=== PATIENT | male | born 1990 | race Caucasian/White ===

== ENCOUNTER 2016-08-27 15:55 | Emergency (ER) | payer OTHER, BC ==
[2016-08-27 16:02] VITALS: BP 140/97
[2016-08-27] MEDS ORDERED: DIPHTH,PERTUSS(ACELL),TET VAC 0.5 ML VIAL IM ONE ×2 (16:03→16:21)
--- NOTE | 2016-08-27 16:30 | ERNOTE ---
Medical Problem HPI - Narrative Date of Service: 08/27/16 - General Chief Complaint: Laceration Time Seen by Provider: 08/27/16 16:15 Source: patient Exam Limitations: no limitations - Immun/Allergies/Home Medications Immunizations: IMMUNIZATION HX Immunizations Up to Date Yes Allergies/Adverse Reactions: Allergies No Known Allergies Allergy (Unverified 08/27/16 16:02) Home Medications: HOME MEDICATIONS NK [No Home Medication] 08/27/16 [Last Taken Unknown] - History of Present History Narrative: Pt. comes in with c/o R thumb laceration that he obtained when taking apart a dashboard at work just prior to arrival. Pt. denies any numbness, tingling, SOB , or CP but cannot remember when he had his last tetanus vaccine. Review of Systems - Review of Systems Constitutional: Present: no symptoms reported. Absent: recent illness, fever, chills, weakness, fatigue, malaise EYE: Present: no symptoms reported ENT: Present: no symptoms reported Respiratory: Present: no symptoms reported. Absent: shortness of breath, cough , wheezing Cardiology: Present: no symptoms reported. Absent: chest pain, palpitations, edema Genitourinary: Present: no symptoms reported Musculoskeletal: Present: joint pain - R distal thumb Skin: Present: other - Laceration R lateral thumb 0.4 x 2 parallel to thumb one along nail cutical and one 0.3cm lateral to the first Neurological: Present: no symptoms reported. Absent: numbness, tingling All Other Systems: All systems neg except as marked - Patient's Past Medical History Patient History - Medical: No pertinent hx Patient History - Cardiac/Respiratory: No pertinent hx Patient History - Cancer: No Hx of Cancer Patient History - Surgical Procedures: No surgical history - Social History Smoking Status: Current every day smoker Have you smoked in the past 12 months: Yes - Immunizations Immunizations Up to Date: Yes Physical Exam - Physical Exam General Appearance: Present: wd/wn, alert, no apparent distress Eye Exam: Normal inspection: bilateral, PERRL: bilateral, EOMI: bilateral Neck: Present: normal inspection, nontender. Absent: lymphadenopathy (R), lymphadenopathy (L) Respiratory: Present: no respiratory distress, normal breath sounds, no accessory muscle use, chest nontender, lungs clear Cardiovascular/Chest: Present: regular rate, rhythm, no murmur, normal peripheral pulses Extremity Exam: Present: normal range of motion, no edema, other - Laceration R lateral thumb laceration 0.4 x 2 parallel to thumb one along nail cutical and one 0.3cm lateral to the first Neurological Exam: Present: alert, oriented, normal mood/affect, no motor/ sensory deficits Skin Exam: Present: normal color, warm/dry. Absent: pallor, skin rash ED Progress - Date and Time Seen: Date and Time: 08/27/16 16:34 As wound is superficial and small and there are two wounds will do a partial closure to aid in wound healing but pt. is aware that wound will close by secondary intention due to the wound being adjacent to nail and is in agreement with plan. - Vital Signs Patient's Vital Signs:: I have reviewed the patient's vital signs. Vital Signs: Vital Signs 08/27/16 15:59 Temperature 36.7 C Pulse Rate 88 Respiratory 14 Rate Blood Pressure 140/97 O2 Sat by Pulse 98 Oximetry - Progress/Reassessment Chief Complaint: Laceration Progress:: Improved Departure - Departure Clinical Impression: Laceration Disposition: Home self-care Condition: Good Instructions: Tissue Adhesive Wound Care, [id number] Additional Instructions: Please keep wound dry for 5-7 days. Please watch for signs of infection and follow up with primary provider as needed.
== END 2016-08-27 16:40 | disposition home or self-care (01) ==
LOC: ER 15:55
DX: S61.011A Laceration without foreign body of right thumb without damage to nail, initial encounter (principal); W45.8XXA Other foreign body or object entering through skin, initial encounter; Y93.89 Activity, other specified; Y92.89 Other specified places as the place of occurrence of the external cause; Y99.0 Civilian activity done for income or pay; Z23 Encounter for immunization; F17.210 Nicotine dependence, cigarettes, uncomplicated

== ENCOUNTER 2019-09-16 18:14 | Observation (INO) ==
[2019-09-16] MEDS ORDERED: NORMAL SALINE 1,000 ML IV ONE (18:20)
--- NOTE | 2019-09-16 18:27 | ERNOTE ---
Psychological HPI - Date Date of Service: 09/16/19 - General Chief Complaint: Drug Overdose Source: Reports: patient, EMS Exam Limitations: Reports: no limitations - Immun/Allergies/Home Medications Allergies/Adverse Reactions: Allergies No Known Allergies Allergy (Verified 09/16/19 18:21) Home Medications: HOME MEDICATIONS traZODone HCL [Trazodone HCl] 300 mg PO HS 09/02/17 [Last Taken Unknown] Prazosin HCl [Minipress] 8 mg PO DAILY 07/14/18 [Last Taken Unknown] Sertraline HCl [Zoloft] 100 mg PO HS 09/16/19 [Last Taken Unknown] hydrALAZINE HCL [Hydralazine HCl] 25 mg PO TID 09/16/19 [Last Taken Unknown] - History of Present Illness Narrative: Patient presents to the ED for an intentional drug overdose. He intentionally took 20 2 mg minipress tablets. This happened at 5:30 tonight. He relates he also too 50mg of Hydrozyzine but he normally would take that for anxiety. He did this because his told him she was going to leave. He was last inpatient psychiatric care 3 weeks ago. Goes to the NH. Denies symptoms at this time. No CP or SOB. No nausea or vomiting. He is feeling a little tired from the hydroxyzine. Time Seen by Provider: 09/16/19 19:33 Arrived by: Reports: ambulance Onset/duration: Reports: sudden onset Intent: Reports: suicide Mechanism: Reports: overdose Situational Problems: Reports: significant other Associated Symptoms: Reports: depressed, suicidal thoughts, made attempt Prior Treament: Reports: recently seen Review of Systems - Review of Systems Constitutional: Absent: fever ENT: Absent: sore throat Respiratory: Absent: shortness of breath Cardiology: Absent: chest pain Gastrointestinal/Abdominal: Absent: abdominal pain Genitourinary: Absent: dysuria All Other Systems: All systems neg except as marked Medical History (Last Reviewed 09/16/19 @ 18:26 by Gallo Frye MD) Anxiety Depression Fracture of one or more phalanges of hand Onset Date: ~09/04/17 Left thumb Headache PTSD (post-traumatic stress disorder) Panic attack Surgical History: Surgical History (Last Updated 09/16/19 @ 18:41 by Gissel Villela RN) [place] teeth extracted Family History: Family History (Last Reviewed 09/16/19 @ 18:26 by Gallo Frye MD) Brother No problems noted. Father Hypertension Hodgkins lymphoma Mother CVA (cerebral vascular accident) Sister No problems noted. Sister No problems noted. Social History: (Last Reviewed 09/16/19 @ 18:26 by Gallo Frye MD) Social History: Marital status: current occupational status: employed current occupation: Clinical Research Specialist Service: No Tobacco: Smoking Status: Current every day smoker tobacco type: cigarettes Alcohol: alcohol intake: current alcohol intake frequency: a few times a week Substance Use: substance use type: does not use Dietary Habits: caffeine: No caffeine comment: Former Psychological Exam - Exam General Appearance: Present: alert, no apparent distress Head Exam: Present: normal inspection, no evidence of injury Neurological: Present: alert, cover cutter machine II-XII nml as tested, depressed affect Thoughts/Hallucinations: Present: no apparent hallucination. Absent: visual hallucinations Behavior/Eye Contact/Speech: Present: avoids eye contact Eye Exam: Normal inspection: bilateral, PERRL: bilateral Ears, Nose, Throat: Present: normal ENT inspection Neck: Present: normal inspection Respiratory: Present: no respiratory distress, normal breath sounds, no accessory muscle use, lungs clear Cardiovascular/Chest: Present: regular rate, rhythm, normal peripheral pulses Gastrointestinal/Abdominal: Present: normal bowel sounds, nontender, nondistended, soft Back Exam: Present: normal inspection, no vertebral tenderness Extremity Exam: Present: normal inspection, non-tender, normal range of motion Skin Exam: Present: normal color, warm/dry Progress - Results and Orders Patient's Lab Results:: I have reviewed the patient's lab results. - Vital Signs Patient's Vital Signs:: I have reviewed the patient's vital signs. - EKG EKG #1 EKG: NSR EKG read: Interp. by me EKG Comments: NSR rate 78. Non-specific ST/T wave changes, no STEMI noted. - Progress/Reassessment Progress Note-Subjective: 09/16/19 19:31 IV fluids initiated. Patient currently stable. Nursing discussed with poison control. Patient needs prolonged observation before he can be cleared to go to psych unit. Given duration this will need to be done in the hospital. D/W Dr Robbins who will admit for observation and final clearance before psych placement hopefully tomorrow. Departure Clinical Impression: Overdose, Suicide attempt - Departure Disposition: Still a patient Condition: Stable
[2019-09-16 18:37] LABS: Hematocrit 46.2 % (42.0-52.0); Mean Cell Volume 85.7 fl (78-100); Mean Corpuscular Hemoglobin 29.7 pg (27-31); Mean Corpuscular Hgb Conc 34.6 g/dl (32-36); Mean Platelet Volume 9.1 fl (8-11.3); Neutrophil # 4.3 K/mm3 (1.3-6.0); Neutrophil % 62.4 % (42-75.0); Platelet Count 308 K/mm3 (150-450); Red Blood Count 5.39 M/mm3 (4.7-6.0); Red Cell Distribution Width 12.3 % (11.5-14.0); White Blood Count 6.9 K/mm3 (4.0-10.5)
[2019-09-16 19:12] LABS: ALT 100 U/L (19-67); AST 45 U/L (0-48); Albumin * 4.4 gm/dl (3.4-5.0); Alkaline Phosphatase * 106 U/L (50-170); Anion Gap 16.9 mmol/L (6.8-13.8); BUN/Creatinine Ratio 16.7 (9.0-21.6); Bilirubin, Total 0.6 mg/dL (0.0-1.1); Blood Urea Nitrogen 20 mg/dL (6-23); Ca. Corrected For Albumin 9.4 mg/dL (8.4-10.2); Carbon Dioxide 22.8 mmol/L (24-32.6); Chloride 102 mmol/L (97-106); Glucose * 107 mg/dL (70-110); Potassium 3.7 mmol/L (3.4-4.6); Salicylate Less than 2.8 mg/dL (2.8-20.0); Sodium 138 mmol/L (132-142); TSH * 1.587 uIU/mL (0.358-3.74); Total Protein 8.4 gm/dL (6.2-8.2)
[2019-09-16 19:21] LABS: Cocaine Ur Negative (NEGATIVE); Urine Barbiturate Negative (NEGATIVE); Urine Benzodiazepines Negative (NEGATIVE); Urine Opiates Negative (NEGATIVE); Urine PCP Negative (NEGATIVE); Urine THC Negative (NEGATIVE)
--- NOTE | 2019-09-17 00:55 | HP ---
Chief Complaint - Chief Complaint Date of Service: 09/17/19 Time of Service: 00:54 Chief Complaint: Suicidal Drug Overdose Medical History (Last Reviewed 09/16/19 @ 22:14 by Kerri Sharp RN) Anxiety Depression Fracture of one or more phalanges of hand Onset Date: ~09/04/17 Left thumb Headache PTSD (post-traumatic stress disorder) Panic attack Surgical History: Surgical History (Last Reviewed 09/16/19 @ 22:14 by Kreri Sharp RN) [place] teeth extracted Family History: Family History (Last Reviewed 09/16/19 @ 22:14 by Kerri Sharp RN) Brother No problems noted. Father Hypertension Hodgkins lymphoma Mother CVA (cerebral vascular accident) Sister No problems noted. Sister No problems noted. 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: No Tobacco: Smoking Status: Current every day smoker tobacco type: cigarettes Alcohol: alcohol intake: current alcohol intake frequency: a few times a week Substance Use: substance use type: does not use Dietary Habits: caffeine: No caffeine comment: Former Immunizations: IMMUNIZATION HX Immunizations Up to Date Yes History of Influenza Vaccine Yes Hx Pneumococcal Vaccination No Allergies/Adverse Reactions: Allergies Allergy/AdvReac Type Severity Reaction Status Date / Time No Known Allergies Allergy Verified 09/16/19 18:21 Home Medications: HOME MEDICATIONS traZODone HCL [Trazodone HCl] 300 mg PO HS 09/02/17 [Last Taken 09/15/19] Prazosin HCl [Minipress] 8 mg PO DAILY 07/14/18 [Last Taken 09/16/191699 today] Sertraline HCl [Zoloft] 100 mg PO HS 09/16/19 [Last Taken 09/15/19] hydrALAZINE HCL [Hydralazine HCl] 25 mg PO TID 09/16/19 [Last Taken 09/16/191699 today] Exam - Exam Vital Signs: Vital Signs - Last Taken Temp 36.2 C 09/16/19 21:26 Pulse 70 09/17/19 00:00 Resp 16 09/17/19 00:00 BP 124/69 09/17/19 00:00 Pulse Ox 97 09/17/19 00:00 Diagnostic Studies: Abnormal Lab Results 09/16/19 09/16/19 09/16/19 Range/Units 18:31 18:31 21:36 Eosinophils % 4.5 H (0.0-3.0) % Carbon Dioxide 22.8 L (24-32.6) mmol/L Anion Gap 16.9 H (6.8-13.8) mmol/L ALT 100 H (19-67) U/L Total Protein 8.4 H (6.2-8.2) gm/dL Salicylates Less than 2.8 L (2.8-20.0) mg/dL Acetaminophen Less than 0.2 L Less than 0.2 L (10.0-30.0) mcg/mL Laboratory Results WBC 6.9 K/mm3 (4.0-10.5) 09/16/19 18: RBC 5.39 M/mm3 (4.7-6.0) 09/16/19 18: Hgb 16.0 gm/dL (13.5-18.0) 09/16/19 18: Hct 46.2 % (42.0-52.0) 09/16/19 18: MCV 85.7 fl (78-100) 09/16/19 18: MCH 29.7 pg (27-31) 09/16/19 18: MCHC 34.6 g/dl (32-36) 09/16/19 18: RDW 12.3 % (11.5-14.0) 09/16/19 18: Plt Count 308 K/mm3 (150-450) 09/16/19 18: MPV 9.1 fl (8-11.3) 09/16/19 18: Immature Gran % (Auto) 0.30 % (0.001-0.429) 09/16/19 18: Immature Gran # (Auto) 0.02 K/mm3 (0.000-0.0310) 09/16/19 18: Neutrophils % 62.4 % (42-75.0) 09/16/19 18: Lymphocytes % 25.1 % (20-51) 09/16/19 18: Monocytes % 7.1 % (0.0-9) 09/16/19 18: Eosinophils % 4.5 % (0.0-3.0) H 09/16/19 18:31 Basophils % 0.6 % (0.0-1.0) 09/16/19 18:31 Nucleated RBC % 0.0 k/mm3 (0-1) 09/16/19 18:31 Neutrophils # 4.3 K/mm3 (1.3-6.0) 09/16/19 18:31 Lymphocytes # 1.74 k/mm3 (1.5-3.5) 09/16/19 18: Monocytes # 0.5 k/mm3 (0.0-1.0) 09/16/19 18:31 Eosinophils # 0.3 k/mm3 (0.0-0.7) 09/16/19 18:31 Absolute Basophils 0.0 k/mm3 (0.0-0.1) 09/16/19 18:31 Sodium 138 mmol/L (132-142) 09/16/19 18:31 Plasma Sodium 138 mmol/L (130-142) 09/16/19 18:31 Potassium 3.7 mmol/L (3.4-4.6) 09/16/19 18:31 Chloride 102 mmol/L (97-106) 09/16/19 18:31 Carbon Dioxide 22.8 mmol/L (24-32.6) L 09/16/19 18:31 Anion Gap 16.9 mmol/L (6.8-13.8) H 09/16/19 18:31 BUN 20 mg/dL (6-23) 09/16/19 18:31 Creatinine 1.20 mg/dL (0.4-1.4) 09/16/19 18:31 Est GFR (Non-Af Amer) 76 mL/min (60-130) 09/16/19 18:31 BUN/Creatinine Ratio 16.7 (9.0-21.6) 09/16/19 18: Random Glucose 107 mg/dL (70-110) 09/16/19 18: Calcium 10.0 mg/dL (7.9-10.9) 09/16/19 18:31 Calcium Adj for Albumin 9.4 mg/dL (8.4-10.2) 09/16/19 18: Total Bilirubin 0.6 mg/dL (0.0-1.1) 09/16/19 18:31 AST 45 U/L (0-48) 09/16/19 18:31 ALT 100 U/L (19-67) H 09/16/19 18:31 Alkaline Phosphatase 106 U/L (50-170) 09/16/19 18:31 Total Protein 8.4 gm/dL (6.2-8.2) H 09/16/19 18:31 Albumin 4.4 gm/dl (3.4-5.0) 09/16/19 18:31 TSH 1.587 uIU/mL (0.358-3.74) 09/16/19 18:31 Salicylates Less than 2.8 mg/dL (2.8-20.0) L 09/16/19 18:31 Urine Opiates Screen Negative (NEGATIVE) 09/16/19 19:08 Acetaminophen Less than 0.2 mcg/mL (10.0-30.0) L 09/16/19 21:36 Barbiturate Screen Negative (NEGATIVE) 09/16/19 19:08 Ur Phencyclidine Scrn Negative (NEGATIVE) 09/16/19 19:08 Urine Amphetamine Negative (NEGATIVE) 09/16/19 19:08 U Benzodiazepines Scrn Negative (NEGATIVE) 09/16/19 19:08 Urine Cocaine Screen Negative (NEGATIVE) 09/16/19 19:08 Urine Marijuana (THC) Negative (NEGATIVE) 09/16/19 19:08 Ethyl Alcohol Less than 3.0 mg/dL (0.0-10.0) 09/16/19 18:31 SARS-CoV-2 (PCR) Not detected (ND) 09/16/19 20:10
--- NOTE | 2019-09-17 10:40 | HPDIS ---
Chief Complaint - Chief Complaint Date of Service: 09/17/19 Time of Service: 00:10 Chief Complaint: Suicidal Overdose History of Present Illness: Po is a pleasant 29 yo male who presented to the [facility] ER after taking 20 tablets of 2mg Prazosin in a suicidal attempt. He was treated inpatient at the [facility] for psychiatric concerns 3 weeks ago and had been doing better. He was just told by his that she was leaving him and he impulsively took the medications. He regrets doing this and does not feel suicidal. He currently has no symptoms and feels fine. He specifically denies lightheadedness, fatigue, nausea, or vomiting. Medical History (Last Reviewed 09/16/19 @ 22:14 by Kerri Sharp RN) Anxiety Depression Fracture of one or more phalanges of hand Onset Date: ~09/04/17 Left thumb Headache PTSD (post-traumatic stress disorder) Panic attack Surgical History: Surgical History (Last Reviewed 09/16/19 @ 22:14 by Kerri Sharp RN) [place] teeth extracted Family History: Family History (Last Reviewed 09/16/19 @ 22:14 by Kerri Sharp RN) Brother No problems noted. Father Hypertension Hodgkins lymphoma Mother CVA (cerebral vascular accident) Sister No problems noted. Sister No problems noted. Social History: (Last Reviewed 09/16/19 @ 22:14 by Kerri Sharp RN) Social History: Marital status: current occupational status: employed current occupation: Human Resources Professional Service: No Tobacco: Smoking Status: Current every day smoker tobacco type: cigarettes Alcohol: alcohol intake: current alcohol intake frequency: a few times a week Substance Use: substance use type: does not use Dietary Habits: caffeine: No caffeine comment: Former Review Of Systems (GEN) - Review of Systems Generalized/Overall Review: Absent: Weakness, Chills, Fever EENTM: Present: No Symptoms Reported Respiratory: Absent: Cough, Shortness of Breath Cardiac: Absent: Chest Pain, Edema Abdominal: Absent: Nausea, Vomiting Genitourinary: Absent: Burning, Urgency Neurological: Present: Depressed. Absent: Headache Skin: Absent: Lesions, Lumps, Rash Endocrine: Absent: Excessive Sweating, Increased Thirst Immunizations: IMMUNIZATION HX Immunizations Up to Date Yes History of Influenza Vaccine Yes Hx Pneumococcal Vaccination No Allergies/Adverse Reactions: Allergies Allergy/AdvReac Type Severity Reaction Status Date / Time No Known Allergies Allergy Verified 09/16/19 18:21 Home Medications: HOME MEDICATIONS traZODone HCL [Trazodone HCl] 300 mg PO HS 09/02/17 [Last Taken 09/15/19] Prazosin HCl [Minipress] 8 mg PO DAILY 07/14/18 [Last Taken 09/16/19 1700 today] Sertraline HCl [Zoloft] 100 mg PO HS 09/16/19 [Last Taken 09/15/19] hydrALAZINE HCL [Hydralazine HCl] 25 mg PO TID 09/16/19 [Last Taken 09/16/19 170 today] Exam - Exam Vital Signs: Vital Signs - Last Taken Temp 36.7 C 09/17/19 10:00 Pulse 72 09/17/19 10:00 Resp 18 09/17/19 10:00 BP 134/82 09/17/19 10:00 Pulse Ox 99 09/17/19 10:00 Constitutional: Present: Alert, Oriented x3, Cooperative ENT Exam: Present: hearing grossly normal Eye Exam: bilateral eye: normal inspection Respiratory: Present: lungs clear, normal breath sounds, no respiratory distress Cardiovascular/Chest: Present: regular rate, rhythm, no edema, no murmur Abdomen: Present: Normal bowel sounds, soft, nontender, nondistended Skin Exam: Present: normal color, warm/dry, no cyanosis Appearance: Present: appropriate appearance, appropriate insight Eye contact: Present: cooperative, good eye contact, normal speech Thoughts: Present: normal thought pattern, no apparent hallucination Diagnostic Studies: Abnormal Lab Results 09/16/19 09/16/19 09/16/19 Range/Units 18:31 18:31 21:36 Eosinophils % 4.5 H (0.0-3.0) % Carbon Dioxide 22.8 L (24-32.6) mmol/L Anion Gap 16.9 H (6.8-13.8) mmol/L ALT 100 H (19-67) U/L Total Protein 8.4 H (6.2-8.2) gm/dL Salicylates Less than 2.8 L (2.8-20.0) mg/dL Acetaminophen Less than 0.2 L Less than 0.2 L (10.0-30.0) mcg/mL Laboratory Results WBC 6.9 K/mm3 (4.0-10.5) 09/16/19 18: RBC 5.39 M/mm3 (4.7-6.0) 09/16/19 18: Hgb 16.0 gm/dL (13.5-18.0) 09/16/19 18: Hct 46.2 % (42.0-52.0) 09/16/19 18: MCV 85.7 fl (78-100) 09/16/19 18: MCH 29.7 pg (27-31) 09/16/19 18: MCHC 34.6 g/dl (32-36) 09/16/19 18: RDW 12.3 % (11.5-14.0) 09/16/19 18: Plt Count 308 K/mm3 (150-450) 09/16/19 18: MPV 9.1 fl (8-11.3) 09/16/19 18: Immature Gran % (Auto) 0.30 % (0.001-0.429) 09/16/19 18: Immature Gran # (Auto) 0.02 K/mm3 (0.000-0.0310) 09/16/19 18: Neutrophils % 62.4 % (42-75.0) 09/16/19 18: Lymphocytes % 25.1 % (20-51) 09/16/19 18: Monocytes % 7.1 % (0.0-9) 09/16/19 18: Eosinophils % 4.5 % (0.0-3.0) H 09/16/19 18: Basophils % 0.6 % (0.0-1.0) 09/16/19 18: Nucleated RBC % 0.0 k/mm3 (0-1) 09/16/19 18: Neutrophils # 4.3 K/mm3 (1.3-6.0) 09/16/19 18: Lymphocytes # 1.74 k/mm3 (1.5-3.5) 09/16/19 18: Monocytes # 0.5 k/mm3 (0.0-1.0) 09/16/19 18: Eosinophils # 0.3 k/mm3 (0.0-0.7) 09/16/19 18: Absolute Basophils 0.0 k/mm3 (0.0-0.1) 09/16/19 18:31 Sodium 138 mmol/L (132-142) 09/16/19 18:31 Plasma Sodium 138 mmol/L (130-142) 09/16/19 18:31 Potassium 3.7 mmol/L (3.4-4.6) 09/16/19 18:31 Chloride 102 mmol/L (97-106) 09/16/19 18:31 Carbon Dioxide 22.8 mmol/L (24-32.6) L 09/16/19 18:31 Anion Gap 16.9 mmol/L (6.8-13.8) H 09/16/19 18:31 BUN 20 mg/dL (6-23) 09/16/19 18: Creatinine 1.20 mg/dL (0.4-1.4) 09/16/19 18: Est GFR (Non-Af Amer) 76 mL/min (60-130) 09/16/19 18: BUN/Creatinine Ratio 16.7 (9.0-21.6) 09/16/19 18: Random Glucose 107 mg/dL (70-110) 09/16/19 18: Calcium 10.0 mg/dL (7.9-10.9) 09/16/19 18: Calcium Adj for Albumin 9.4 mg/dL (8.4-10.2) 09/16/19 18: Total Bilirubin 0.6 mg/dL (0.0-1.1) 09/16/19 18:31 AST 45 U/L (0-48) 09/16/19 18: ALT 100 U/L (19-67) H 09/16/19 18:31 Alkaline Phosphatase 106 U/L (50-170) 09/16/19 18:31 Total Protein 8.4 gm/dL (6.2-8.2) H 09/16/19 18:31 Albumin 4.4 gm/dl (3.4-5.0) 09/16/19 18: TSH 1.587 uIU/mL (0.358-3.74) 09/16/19 18:31 Salicylates Less than 2.8 mg/dL (2.8-20.0) L 09/16/19 18: Urine Opiates Screen Negative (NEGATIVE) 09/16/19 19:08 Acetaminophen Less than 0.2 mcg/mL (10.0-30.0) L 09/16/19 21:36 Barbiturate Screen Negative (NEGATIVE) 09/16/19 19:08 Ur Phencyclidine Scrn Negative (NEGATIVE) 09/16/19 19:08 Urine Amphetamine Negative (NEGATIVE) 09/16/19 19:08 U Benzodiazepines Scrn Negative (NEGATIVE) 09/16/19 19:08 Urine Cocaine Screen Negative (NEGATIVE) 09/16/19 19:08 Urine Marijuana (THC) Negative (NEGATIVE) 09/16/19 19:08 Ethyl Alcohol Less than 3.0 mg/dL (0.0-10.0) 09/16/19 18:31 SARS-CoV-2 (PCR) Not detected (ND) 09/16/19 20:10 Assessment/Plan - Narrative Narrative: Po is a 29 yo male with suicidal attempt on overdose of prazosin. He took approximately 40mg of prazosin. His blood pressure is normal and he appears not to be suffering any consequences. Will monitor overnight. Will consult psych in the morning for continued plan on inpatient treatment vs outpatient follow up. - Assessment/Plan (1) Overdose Problem: Acute Qualifiers: Encounter type: initial encounter (2) Suicide attempt Problem: Acute (1) Overdose Problem: Acute (2) Suicide attempt Problem: Acute Date of Discharge:: 09/17/19 Hospital Course: Po is a 29 yo male admitted for suicidal overdose taking 40mg of Prazosin. He had no medical complications and is medically stable. I consulted telepsych who agree that he is ok for outpatient follow up. [facility] would like to follow up locally. I will put in a consult with local psychiatry for outpatient follow up, but he should continue to meet with the [facility] for now. There are no medication changes at this time. I believe his suicidal attempt was impulsive and he does not appear to have continued suicidal ideation. Procedures Performed: none Results and Findings: Lab Pending Results 09/16/19 18:31: WBC 6.9, RBC 5.39, Hgb 16.0, Hct 46.2, MCV 85.7, MCH 29.7, MCHC 34.6, RDW 12.3, Plt Count 308, MPV 9.1, Immature Gran % (Auto) 0.30, Immature Gran # (Auto) 0.02, Neutrophils % 62.4, Lymphocytes % 25.1, Monocytes % 7.1, Eosinophils % 4.5 H, Basophils % 0.6, Nucleated RBC % 0.0, Neutrophils # 4.3, Lymphocytes # 1.74, Monocytes # 0.5, Eosinophils # 0.3, Absolute Basophils 0.0 09/16/19 18:31: Sodium 138, Plasma Sodium 138, Potassium 3.7, Chloride 102, Carbon Dioxide 22.8 L, Anion Gap 16.9 H, BUN 20, Creatinine 1.20, Est GFR (Non- Af Amer) 76, BUN/Creatinine Ratio 16.7, Random Glucose 107, Calcium 10.0, Calcium Adj for Albumin 9.4, Total Bilirubin 0.6, AST 45, ALT 100 H, Alkaline Phosphatase 106, Total Protein 8.4 H, Albumin 4.4, TSH 1.587, Salicylates Less than 2.8 L, Acetaminophen Less than 0.2 L, Ethyl Alcohol Less than 3.0 09/16/19 19:08: Urine Opiates Screen Negative, Barbiturate Screen Negative, Ur Phencyclidine Scrn Negative, Urine Amphetamine Negative, U Benzodiazepines Scrn Negative, Urine Cocaine Screen Negative, Urine Marijuana (THC) Negative 09/16/19 20:10: SARS-CoV-2 (PCR) Not detected 09/16/19 21:36: Acetaminophen Less than 0.2 L Discharge Location: Home Disposition: Home self-care Condition: Stable Discharge Activity: Activity as tolerated Discharge Diet: General/regular food Referrals: Ashley Saxena ARNP [Development Specialist] - (Next available) Additional Patient Instructions (free text): [facility] be seen locally. Complete Home Medications List: Complete Home Medication List: traZODone HCL [Trazodone HCl] 300 mg PO HS 09/02/17 Prazosin HCl [Minipress] 8 mg PO DAILY 07/14/18 Sertraline HCl [Zoloft] 100 mg PO HS 09/16/19 hydrALAZINE HCL [Hydralazine HCl] 25 mg PO TID 09/16/19 Forms: Patient Portal Registration
[2019-09-17 11:30] VITALS: BP 146/93
== END 2019-09-17 11:15 | disposition home or self-care (01) ==
LOC: SCU 18:14 → ER 18:14 → SCU 21:26
PROVIDERS: ADMIT Family Medicine; ATTEND Family Medicine
CPT/HCPCS: 36415; 80053; 80307; 84443; 85025; 93005; 96360; 99284; 99285; C9803; G0378; G0480